=== PATIENT | female | born 1995 | race Caucasian/White ===

== ENCOUNTER 2021-04-16 13:07 | Outpatient (CLI) | payer OTHER, SELFPAY ==
[2021-04-21 17:07] LABS: HPV Reflexed? NOT INDICATED
== END 2021-04-16 23:59 | disposition home or self-care (01) ==
LOC: LABSPEC 13:17
PROVIDERS: Visit Provider Obstetrics & Gynecology
DX: Z12.4 Encounter for screening for malignant neoplasm of cervix (principal)
CPT/HCPCS: 88175; G0145

== ENCOUNTER 2021-08-25 14:45 | Emergency (ER) | payer OTHER, SELFPAY ==
[2021-08-25 14:46] VITALS: BP 142/100; PULSE 114; RESP 18; TEMP 37.1; O2SAT 100; BMI 31.9
--- NOTE | 2021-08-25 15:21 | US_ITS ---
STUDY: FIRST TRIMESTER OBSTETRICAL ULTRASOUND REASON FOR EXAM: Female, 26 years old. preg with vaginal bleeding TECHNIQUE: Transvaginal US was obtained to better visualized the ovaries. TECHNICAL QUALITY: Adequate. PRIOR ULTRASOUND: None. FINDINGS: There is visualization of a single gestational sac in a normal intrauterine position. The mean sac diameter (MSD) measures 26 mm, indicating an estimated gestational age (EGA) of 7 weeks, 4 days. The gestational sac shape is within normal limits. There is a visualized yolk sac. The yolk sac measures 3.6 mm. The placenta is non-visualized. Due to early gestation, the placenta is not seen. There is visualization of a live embryo. The crown-rump length (CRL) measures 13 mm, indicating an estimated gestational age (EGA) of 7 weeks, 4 days. There is demonstrated cardiac activity with a heart rate of 154 bpm. The estimated gestation age (EGA) by LMP is 7 weeks, 4 days. The estimated date of delivery (EUSEBIA) by LMP is 2.3.23. The estimated gestation age (EGA) by US is 7 weeks, 4 days. The estimated date of delivery (EUSEBIA) by US is 2.3.23. The uterus measures 9.6 cm. There is no demonstrated uterine fibroid. The cervix is closed. The right ovary measures in cm: 2.8. There is no right ovarian cyst. There is no visualized right adnexal mass or complex lesion. The left ovary measures 4 cm. Ovary cyst measures 2 cm. No follow up required. There is no visualized left adnexal mass or complex lesion. There is minimal fluid in the cul de sac. US/Transvaginal w/Preg US IMPRESSION: There is a single live intrauterine with a heart rate of 154 bpm. The estimated gestation age (EGA) by US is 7 weeks, 4 days. The estimated date of delivery (EUSEBIA) by US is 2.3.23. There is minimal fluid in the cul de sac. Electronically Signed: David Colunga MD at 18:06 EDT ,
--- NOTE | 2021-08-25 15:23 | EDS_ITS ---
HPI HPI - Female History of Present Illness Chief Complaint: Vag Bld, Preg Informant: patient Pain Pain: Negative for Pelvic Pain or Vulvar Pain Bleeding Issue: Positive for Vaginal bleeding; Negative for Passing clots or Passing tissue Onset: Today Context: Onset with activity Timing: Intermittent Current Severity: Spotting Maximum pads/hr: 0 Associated Symptoms Associated Symptoms: Negative for Dysuria, Frequency, Urgency or Hematuria Test: Positive Sexually: Positive for Active Control: No control P: 0 Ab: 0 Narrative Narrative: 26-year-old female G1, P0 Ab0 approximately 7 weeks with her last menstrual period beginning on July 03. Think she is around 7 weeks . Today while straining to have a bowel movement had a small amount of bright red vaginal bleeding. No heavy clots. No discharge. No dysuria. No fever. Currently she is having no pain. Prior similar symptoms: No Recent Illness/Hospitalization: No PFSH PFSH Medical History Non-smoker Medical History no medical history no medical history Home Medications prenat.vits,emy,zkp-lefk-nixox 1 tab PO DAILY 08/24/21 [History Last Taken Unknown] Allergy/AdvReac Type Severity Reaction Status Date / Time latex Allergy Mild itching Verified 08/25/21 14:47 Family History Father , liver failure ETOH abuse Social History adopted: No household members: spouse current occupational status: employed current occupation: [employer] pets and animals: Yes pets and animals: dog(s) Smoking Status: Never smoker alcohol intake: never substance use type: does not use do you feel safe at home: Yes additional social history: spouse: Patel FLETCHER ROS ED ROS Narrative Denies recent illness. Review of Systems ROS Unobtainable: Denies due to encephalopathy Constitutional Constitutional ED: Denies chills Eyes Eyes: Denies blurry vision ENT ENT ED: Denies ear pain Cardiovascular Cardiovascular: Denies chest pain Respiratory/Chest Respiratory/Chest: Denies cough Gastrointestinal Gastrointestinal: Denies abdominal pain Genitourinary Genitourinary ED: Denies dysuria Musculoskeletal Musculoskeletal: Denies arthralgias Integumentary Denies abscess Neurologic Neurologic: Denies headache(s) Psychiatric Psychiatric: Denies anxiety Endocrine Endocrinology: Denies heat intolerance Hematologic/Lymphatic Hematologic/Lymphatic: Denies easy bleeding Allergic/Immunologic Allergic/Immunologic ED: Denies mouth swelling EXAM Physical Exam Narrative Exam Narrative: 14-year-old female no acute distress vital signs stable afebrile. HEENT exam unremarkable. Lungs clear. Heart regular rhythm rate about 110 no murmur. Abdomen soft nontender normal bowel sounds no peritoneal signs. Nontender uterus. Moving all 4 extremities. Neurologically she is awake alert. Const Vital Signs: 08/25/21 14:46 08/25/21 17:53 Temperature 98.7 F Temperature Source Temporal Pulse Rate 114 H 103 H Respiratory Rate 18 15 Blood Pressure 142/100 H 129/82 H Blood Pressure Mean 114 97 Pulse Ox 100 99 Oxygen Delivery Method Room Air Room Air Positive well nourished and well developed; Negative for cachectic, contractures or unkempt General Appearance ED: well developed; Negative for unkempt, cachectic or contractures Nutritional Appearance: Negative for cachectic HEENT Reports moist mucous membranes Negative for trauma Eyes PERRL and EOMs intact bilaterally General Eye ED: Negative for pale conjunctiva or scleral icterus Neck no lymphadenopathy, supple and no JVD Chest Wall inspection of chest normal and palpation of chest normal Resp normal respiratory effort and clear to auscultation bilaterally Cardio regular rhythm, S1 normal heart sound, no murmurs and no JVD; Negative for regular rate Rate: tachycardic GI normal to inspection, nondistended, normoactive bowel sounds, soft to palpation, non-tender, non-distended and no masses Auscultation: normoactive bowel sounds Palpation: Negative for tender, guarding or rigid Back/Spine Negative for no CVA tenderness General Back: Negative for CVA tenderness Extremity normal to inspection and full ROM General Extremety ED: Negative for edema or tenderness General Extremity: Negative for edema Neuro oriented x3 and CN's II-XII intact bilaterally Sensorium / Orientation: alert, oriented to person, oriented to place and oriented to time; Negative for confused, lethargic or stuporous Motor Exam: strength 5/5 throughout; Negative for general weakness Psych mental status grossly normal Appearance: Negative for unkempt Attitude: No agitated Mood & Affect: Negative for depressed Skin no rashes or lesions noted and no wounds MDM MDM MDM Narrative Medical decision making narrative: 26-year-old female G1, P0 Ab0. Concern with vaginal bleeding today. Ultrasound and labs to be obtained. She is having no pain. Threatened miscarriage versus other. Repeat exam patient is doing well at 6:48 PM to be discharged home with follow- up with her JUDICIAL LAW CLERK. Lab Data Attestation: I reviewed the patient's lab results. Lab results narrative: Blood type is a positive. Quant was 84,139. Ultrasound shows a single live IUP at 7 weeks and 4 days. Estimated date of delivery is April 09, 2022. Heart rate 154. Labs: Laboratory Results - last 24 hr 08/25/21 08/25/21 15:43 15:43 HCG, Quant [id number] H Blood Type A POSITIVE Radiography Diagnostic Testing: Clinical Impression(s) from Imaging Studies Obstetrics Ultrasound 08/25/21 15:21 IMPRESSION: There is a single live intrauterine with a heart rate of 154 bpm. The estimated gestation age (EGA) by US is 7 weeks, 4 days. The estimated date of delivery (EUSEBIA) by US is 2.3.23. There is minimal fluid in the cul de sac. Electronically Signed: David Colunga MD at 18:06 EDT Reading Location ID and State: [facility] / [place] , Service support , Discharge Plan Triage Chief Complaint: Vag Bld, Preg ED Provider: Kyle Pendleton Dx/Rx/DC Orders Clinical Impression: , Vaginal bleeding, Threatened miscarriage Instructions: First Trimester Prescriptions: No Action prenat.vits,emy,uhl-kprh-utvpc Tablet 1 tab PO DAILY Primary Care Provider: Jose De Jesus Bouhcer Referrals: Linda Grant DO [STAFF PHYSICIAN] - Keep Lia appointment Jose De Jesus Boucher MD [Primary Care Provider] - Activity Restrictions/Additional Instructions: Everything checks out well today. Your ultrasound shows a fetus is 7 weeks and 4 days. Your estimated date of delivery is April 09, 2022. Follow-up with your JUDICIAL LAW CLERK. Return if heavy bleeding. No heavy lifting or intercourse at this time. Disposition Disposition: Home, Self Care
[2021-08-25 17:53] VITALS: BP 129/82; PULSE 103; RESP 15; O2SAT 99
[2021-08-25 18:57] VITALS: PULSE 68; O2SAT 98
== END 2021-08-25 18:57 | disposition home or self-care (01) ==
PROVIDERS: Emergency Provider Emergency Medicine; PCP Family Medicine; Visit Provider Emergency Medicine
DX: O20.0 Threatened abortion (principal); Z3A.01 Less than 8 weeks gestation of pregnancy
CPT/HCPCS: 76817; 84702; 86900; 86901; 99283; A4216

== ENCOUNTER → 2021-09-03 | Outpatient (CLI) | payer OTHER, SELFPAY ==
[2021-09-03 13:22] LABS: Amphetamine Urine VISTA NEGATIVE (<1000 ng/mL); Barbiturate Urine VISTA NEGATIVE (< 200 ng/mL); Benzodiazepine Urine VISTA NEGATIVE (< 200 ng/mL); Cocaine Urine VISTA NEGATIVE (< 300 ng/mL); Ecstacy Urine VISTA NEGATIVE (< 500 ng/mL); Methadone Urine VISTA NEGATIVE (< 300 ng/mL); PCP Urine VISTA NEGATIVE (< 25 ng/mL); THC Urine VISTA NEGATIVE (< 50 ng/mL); Vista UDS pH Range 7
[2021-09-05 00:06] LABS: Chlamydia By Nucleic Acid AMP Negative (Negative)
[2021-09-05 14:25] LABS: Gonococcus By Nucleic Acid AMP Negative (Negative)
== END | disposition home or self-care (01) ==
LOC: LABSPEC 12:16
PROVIDERS: PCP Family Medicine; Visit Provider Obstetrics & Gynecology
DX: Z34.90 Encounter for supervision of normal pregnancy, unspecified, unspecified trimester (principal)
CPT/HCPCS: 80307; 87086; 87088; 87491; 87591

== ENCOUNTER → 2021-09-15 | Outpatient (CLI) | payer OTHER, SELFPAY ==
[2021-09-15 12:37] LABS: Absolute Neutrophil Count 7.4 X10^3/uL (2.0-7.7); Basophil# 0.01 X10^3/uL; Basophil% 0.1 % (0-1); Eosinophil# 0.04 X10^3/uL; Eosinophils% 0.4 % (0-5); Hematocrit 34.5 % (37-47); Hemoglobin 11.7 g/dL (12.0-15.0); Lymphocyte % 17.2 % (19-41); Mean Corp Hgb Conc 33.9 g/dL (32-36); Mean Corpuscular Hgb 30.7 pg (27.0-32.0); Mean Corpuscular Volume 90.6 fL (81-99); Mean Platelet Vol. 10.3 fl (6.2-12.0); Monocyte# 0.67 X10^3/uL; Monocyte% 6.8 % (0-10); NRBC Flagged by Analyzer 0 % (0-5); Neutrophil # 7.43 X10^3/uL (2.7-7.7); Platelet Count 268 K/mm3 (150-450); RBC Distribution Width CV 12.8 % (11.6-14.6); RBC Distribution Width SD 41.4 fl (35.1-43.9); Red Blood Count 3.81 M/mm3 (4.2-5.4); White Blood Count 9.9 K/mm3 (4.4-11.0)
[2021-09-15 13:07] LABS: Glucose Challenge Gest 1H 50g 136 mg/dL (70-140)
[2021-09-15 15:13] LABS: HIV - WCH Non-Reactive (Nonreactive); Hepatitis B Surface Antigen Non-Reactive (Nonreactive); Hepatitis C Antibody Non-Reactive (Nonreactive); Rubella IgG Reactive (Nonreactive); Syphilis Antibodies Non-reactive
[2021-09-16 16:59] LABS: V-Zoster IgG (Immunity) 193 index (Immune >165)
== END | disposition home or self-care (01) ==
LOC: LAB 11:35
PROVIDERS: PCP Family Medicine; Referring Provider Obstetrics & Gynecology; Visit Provider Obstetrics & Gynecology
DX: Z34.90 Encounter for supervision of normal pregnancy, unspecified, unspecified trimester (principal)
CPT/HCPCS: 36415; 82950; 85025; 86703; 86762; 86780; 86787; 86803; 86850; 86900; 86901; 87340

== ENCOUNTER → 2021-09-30 | Outpatient (CLI) | payer OTHER, SELFPAY ==
[2021-09-30 09:33] LABS: Glucose GTT-Gestation. Fasting 93 mg/dL (<105)
[2021-09-30 11:36] LABS: Glucose GTT-Gestational 2 Hr 107 mg/dL (<165)
[2021-09-30 11:40] LABS: Glucose GTT-Gestational 1 Hr 115 mg/dL (<190)
[2021-09-30 12:59] LABS: Glucose GTT-Gestational 3 Hr 47 L (<145)
== END | disposition home or self-care (01) ==
LOC: LAB 08:50
PROVIDERS: PCP Family Medicine; Visit Provider Obstetrics & Gynecology
DX: Z13.1 Encounter for screening for diabetes mellitus (principal)
CPT/HCPCS: 36415; 82951; 82952

== ENCOUNTER → 2022-01-12 | Outpatient (CLI) | payer OTHER, SELFPAY ==
[2022-01-12 09:13] LABS: Absolute Lymphocyte Count 1.33 X10^3/uL (0.83-4.51); Absolute Neutrophil Count 10.3 X10^3/uL (2.0-7.7); Basophil# 0.02 X10^3/uL; Basophil% 0.2 % (0-1); Eosinophil# 0.07 X10^3/uL; Eosinophils% 0.6 % (0-5); Hematocrit 31.1 % (37-47); Hemoglobin 10.3 g/dL (12.0-15.0); Lymphocyte # 1.33 X10^3/ul (0.83-4.51); Lymphocyte % 10.7 % (19-41); Mean Corp Hgb Conc 33.1 g/dL (32-36); Mean Corpuscular Hgb 30.8 pg (27.0-32.0); Mean Corpuscular Volume 93.1 fL (81-99); Mean Platelet Vol. 9.7 fl (6.2-12.0); Monocyte# 0.66 X10^3/uL; Monocyte% 5.3 % (0-10); NRBC Flagged by Analyzer 0 % (0-5); Neutrophil # 10.29 X10^3/uL (2.7-7.7); Neutrophil % 82.6 % (47-70); Platelet Count 254 K/mm3 (150-450); RBC Distribution Width CV 13.1 % (11.6-14.6); RBC Distribution Width SD 44.7 fl (35.1-43.9); Red Blood Count 3.34 M/mm3 (4.2-5.4); White Blood Count 12.4 K/mm3 (4.4-11.0)
[2022-01-12 09:22] LABS: Glucose Challenge Gest 1H 50g 127 mg/dL (70-140)
== END | disposition home or self-care (01) ==
LOC: PAVLAB 08:47
PROVIDERS: PCP Family Medicine; Referring Provider Nurse Practitioner Women's Health; Visit Provider Nurse Practitioner Women's Health
DX: Z34.90 Encounter for supervision of normal pregnancy, unspecified, unspecified trimester (principal)
CPT/HCPCS: 36415; 82950; 85025

== ENCOUNTER → 2022-03-15 | Outpatient (CLI) | payer OTHER, SELFPAY ==
[2022-03-15 09:39] LABS: Absolute Lymphocyte Count 1.37 X10^3/uL (0.83-4.51); Absolute Neutrophil Count 9.2 X10^3/uL (2.0-7.7); Basophil# 0.02 X10^3/uL; Basophil% 0.2 % (0-1); Eosinophil# 0.07 X10^3/uL; Eosinophils% 0.6 % (0-5); Hematocrit 32.9 % (37-47); Hemoglobin 10.8 g/dL (12.0-15.0); Lymphocyte # 1.37 X10^3/ul (0.83-4.51); Lymphocyte % 11.7 % (19-41); Mean Corp Hgb Conc 32.8 g/dL (32-36); Mean Corpuscular Volume 94.5 fL (81-99); Mean Platelet Vol. 9.8 fl (6.2-12.0); Monocyte# 0.93 X10^3/uL; NRBC Flagged by Analyzer 0 % (0-5); Neutrophil # 9.16 X10^3/uL (2.7-7.7); Neutrophil % 78.5 % (47-70); Platelet Count 255 K/mm3 (150-450); RBC Distribution Width CV 13.7 % (11.6-14.6); RBC Distribution Width SD 46.9 fl (35.1-43.9); Red Blood Count 3.48 M/mm3 (4.2-5.4); White Blood Count 11.7 K/mm3 (4.4-11.0)
== END | disposition home or self-care (01) ==
PROVIDERS: PCP Family Medicine; Referring Provider Obstetrics & Gynecology; Visit Provider Obstetrics & Gynecology
DX: Z34.93 Encounter for supervision of normal pregnancy, unspecified, third trimester (principal)
CPT/HCPCS: 36415; 85025; 87081

== ENCOUNTER 2022-04-06 05:00 | Inpatient (IN) | payer OTHER, SELFPAY ==
[2022-04-06] VITALS (68 sets, daily range): BP systolic 109–139; BP diastolic 57–91; PULSE 73–128; RESP 16; TEMP 36.4–37.3; O2SAT 96–100; BMI 36.8
[2022-04-06 05:00] LABS: ROM Internal Control Test YES-OK TO RESULT pt. (Internal QC); ROM Patient Test POSITIVE (Negative)
[2022-04-06] MEDS: Lactated Ringers 1,000 ML 50 ML IV (05:25)
[2022-04-06 05:51] LABS: Absolute Lymphocyte Count 1.49 X10^3/uL (0.83-4.51); Absolute Neutrophil Count 10.6 X10^3/uL (2.0-7.7); Basophil# 0.02 X10^3/uL; Basophil% 0.2 % (0-1); Eosinophil# 0.06 X10^3/uL; Eosinophils% 0.5 % (0-5); Hematocrit 31.6 % (37-47); Hemoglobin 10.5 g/dL (12.0-15.0); Lymphocyte # 1.49 X10^3/ul (0.83-4.51); Lymphocyte % 11.3 % (19-41); Mean Corp Hgb Conc 33.2 g/dL (32-36); Mean Corpuscular Hgb 31.2 pg (27.0-32.0); Mean Corpuscular Volume 93.8 fL (81-99); Mean Platelet Vol. 10.3 fl (6.2-12.0); Monocyte# 0.81 X10^3/uL; Monocyte% 6.2 % (0-10); NRBC Flagged by Analyzer 0 % (0-5); Neutrophil # 10.63 X10^3/uL (2.7-7.7); Neutrophil % 80.9 % (47-70); Platelet Count 228 K/mm3 (150-450); RBC Distribution Width CV 13.4 % (11.6-14.6); RBC Distribution Width SD 46.1 fl (35.1-43.9); Red Blood Count 3.37 M/mm3 (4.2-5.4); White Blood Count 13.1 K/mm3 (4.4-11.0)
[2022-04-06] MEDS: 0.9% Saline Lock 10 ML Syringe IV ×2 (07:06→12:53)
--- NOTE | 2022-04-06 07:25 | HP.PCM.OB_ITS ---
HPI - General General Date of Admission: 04/06/22 HPI Narrative DEBRA SANDOVAL, is a 26 y/o @ 39 weeks 4 days gestation who presents to L&D with spontaneous rupture of membranes. She is currently comfortable and has not started contractions yet. It has been over 6 hrs since her rupture. Maternal Data Information EUSEBIA Calculator Estimated Delivery Date Method Current WG Current Estimate 04/09/22 LMP (Certain) 39w 4d PFSH PFSH Medical History Dysmenorrhea Non-smoker Home Medications prenat.vits,emy,okx-gqhl-bivcn 1 tab PO DAILY 08/24/21 [History Last Taken Unknown] ferrous sulfate 325 mg (65 mg iron) tablet 325 mg PO DAILY 02/03/22 [History Last Taken Unknown] Allergy/AdvReac Type Severity Reaction Status Date / Time latex Allergy Mild itching Verified 04/05/22 09:06 Family History Father , liver failure ETOH abuse Other Breast cancer Diabetes Social History adopted: No household members: spouse current occupational status: employed current occupation: [employer] pets and animals: Yes pets and animals: dog(s) Smoking Status: Never smoker alcohol intake: never substance use type: does not use do you feel safe at home: Yes additional social history: spouse: Patel History 2 1 Elective abortions Hx Para 0 Spontaneous abortions Hx # Term Pregnancies Ectopic pregnancies Hx # Pregnancies Multiple births # of living children Visit Details Expected Delivery Route/Plan IOL by 41 Labor Preferences- CB/BF classes: encouraged labor support person: Jack labor intervention preferences: [] pain management options preferred: epidural cut cord/dad catch: yes, possibly wants to help catch. : yes PP control planned: discussed discussed possible routes of delivery and associated risks: [] special requests: [] Plans Covid status: discussed Flu vaccine: discussed Tdap vaccine: discussed Rhogam: na LARC form signed: yes movement and labor precautions reviewed. Problem list reviewed and updated with the most current plan of care details and appropriate orders placed. Relevant counseling for the gestational age provided. Continue routine care and follow up unless otherwise noted in visit notes/problem list details OB Flowsheet Initial Weight: Not Recorded Date -?-?-?-?-?-?-?-?-?-?-?-?- EGA Weight BP Urine Prot -?-?-?-?-?--?-?-?-?-?-?-?- Glucose FHR FuHt Pres Dilation -?-?-?-?-?-?-?-?-?-?-?--?- Effaced St Visit Note 09/03/21 -?-?-?-?-?-?-?-?-?-?-?-?- 8w 6d 194 lb 102/60 -?-?-?-?-?-?-?-?-?-?-?-?- 160 -?-?-?-?-?-?-?-?-?-?-?-?- SM- CRL cons wit h LMP 09/30/21 -?-?-?-?-?-?-?-?-?-?-?-?- 12w 5d 195 lb -?-?-?-?-?-?-?-?-?-?-?-?- 157 -?-?-?-?-?-?-?-?-?-?-?-?- JV- pt has decid ed against NIPT. crl measuring per establised GA. no complaints. return 4 weeks 10/28/21 -?-?-?-?-?-?-?-?-?-?-?-?- 16w 5d 198 lb 8 oz 124/60 Trac e -?-?-?-?-?-?-?-?-?-?-?-?- Negative 158 -?-?-?-?-?-?-?-?-?-?-?-?- MH-No VB, LOF. N o cramping. Anatomy US 11/16. 11/24/21 -?-?-?-?-?-?-?-?-?-?-?-?- 20w 4d 207 lb 110/71 Negative -?-?-?-?-?-?-?-?-?-?-?-?- Negative 150 20 -?-?-?-?-?-?-?-?-?-?-?-?- JV- no lof, vagi nal bleeding, or dec fm. normal anatomy scan. 12/29/21 -?-?-?-?-?-?-?-?-?-?-?-?- 25w 4d 215 lb 2 oz 98/68 Nega tive -?-?-?-?-?-?-?-?-?-?-?-?- Negative 158 -?-?-?-?-?-?-?-?-?-?-?-?- MH-No VB, LOF. G ood FM. States will do 28 wk GCT but will not do 3 hr GTT as difficult blood draws. Discussed home glucose monitoring. 01/19/22 -?-?-?-?-?-?-?-?-?-?-?-?- 28w 4d 220 lb 4 oz 98/64 Nega tive -?-?-?-?-?-?-?-?-?-?-?-?- Negative 144 28 -?-?-?-?-?-?-?-?-?-?-?-?- MH-No VB, LOF. G ood FM. Larc. 28 wk labs 02/03/22 -?-?-?-?-?-?-?-?-?-?-?-?- 30w 5d 224 lb 8 oz 106/73 Nega tive -?-?-?-?-?-?-?-?-?-?-?-?- Negative 137 30 -?-?-?-?-?-?-?-?-?-?-?-?- LC-no vb,ctx,lof . good FM. feel last weekend, had good fm following. instructed to contact office if this occurs again for monitoring. tdap discussed- is considering. LC-no vb,ctx,lof. good FM. f eel last weekend, had good fm following. instructed to contact office if this occurs again for monitoring. tdap discussed- is considering. passed 1 hr GCT. 02/17/22 -?-?-?-?-?-?-?-?-?-?-?-?- 32w 5d 227 lb 4 oz 121/77 Nega tive -?-?-?-?-?-?-?-?-?-?-?-?- Negative 155 32 -?-?-?-?-?-?-?-?-?-?-?-?- JV- no lof, vagi nal bleeding, or dec fm. declines tdap. 03/03/22 -?-?-?-?-?-?-?-?-?-?-?--?- 34w 5d 230 lb 4 oz 106/75 Nega tive -?-?-?-?-?-?-?-?-?-?-?-?- Negative 136 33 -?-?-?-?-?-?-?-?-?-?-?-?- LC- no lof/vb/ct x. good fm. no concerns 03/15/22 -?-?-?-?-?-?-?-?-?-?-?-?- 36w 3d 230 lb 104/70 Negative -?-?-?-?-?-?-?-?-?-?-?-?- Negative 140 37 Cephalic 0 .5 -?-?-?-?-?-?-?-?-?-?-?-?- SM- no vb lof go od fm n oregular ctx gbs done 03/24/22 -?-?-?-?-?-?-?-?-?-?-?-?- 37w 5d 234 lb 135/82 Negative -?-?-?-?-?-?-?-?-?-?-?-?- Negative 138 36 Cephalic 1 -?-?-?-?-?-?-?-?-?-?-?-?- 70 -2 JV- no lof , vaginal bleeding, or dec fm . no complaints. gbs neg. 03/29/22 -?-?-?-?-?-?-?-?-?-?-?-?- 38w 3d 234 lb 120/79 -?-?-?-?-?-?-?-?-?-?-?-?- 145 38 Cephalic 1 -?-?-?-?-?-?-?-?-?-?-?-?- 70 -2 SM- n ovb lof good fm nor egualr ctx 04/05/22 -?-?-?-?-?-?-?-?-?-?-?-?- 39w 3d 235 lb 4 oz 110/76 Nega tive -?-?-?-?-?-?-?-?-?-?-?-?- Negative 140 39 Cephalic 1 .5 -?-?-?-?-?-?-?-?-?-?-?-?- 70 -2 Lc-doing w ell. no regular ctx. no lof/vb. good fm. discussed r/b of IOL at 41 weeks. ROS Constitutional Constitutional: Denies change in weight, fatigue, fever(s), headache(s), poor appetite or weakness Eyes Eyes: Denies blurry vision, change in vision, seeing flashes or spots in vision ENT HEENT: Denies dizziness, headache(s), loss taste/smell or sore throat Cardiovascular Cardiovascular: Denies chest pain, dizziness, dyspnea, irregular heart rhythm, leg edema, palpitations, rapid heart rate or vomiting Respiratory/Chest Respiratory/Chest: Denies chest tightness, cough, dyspnea or breast pain Gastrointestinal Gastrointestinal: Denies abdominal pain, anorexia, constipation, cramping, diarrhea, hemorrhoids, vomiting or weight changes Genitourinary Genitourinary: Denies dysuria, flank pain, genital lesions, genital pain, urinary frequency or urinary urgency Musculoskeletal Musculoskeletal: Denies back pain, difficulty walking, joint pain, limited range of motion, muscle cramps or numbness Integumentary Integumentary: Denies lesions or unusual bruising Neurologic Neurologic: Denies abnormal movements, abnormal speech, dizziness, numbness, seizure-like activity or syncope Psychiatric Psychiatric: Denies anxiety, behavioral changes, change in appetite, change in libido, cognitive impairment, confusion, depression, difficulty concentrating, hallucinations or suicidal thoughts Endocrine Endocrinology: Denies excessive sweating, polydipsia or polyuria Hematologic/Lymphatic Hematologic/Lymphatic: Denies easy bleeding, easy bruising or lymphadenopathy Allergic/Immunologic Allergic/Immunologic: Denies itchy eyes, lip swelling, seasonal rhinorrhea, rhinitis, throat swelling, tongue swelling, eczemia, wheezing or asthma Vital Signs Vital Signs Vital Signs: 04/06/22 04:32 04/06/22 04:33 04/06/22 04:33 Temperature Temperature Source Pulse Rate 100 Blood Pressure 139/91 H BP Systolic 139 BP Diastolic 91 Pulse Ox 96 04/06/22 04:33 04/06/22 04:33 04/06/22 04:34 Temperature 98.1 F Temperature Source Pulse Rate 107 H Blood Pressure 136/83 H BP Systolic 136 BP Diastolic 83 Pulse Ox 04/06/22 05:42 04/06/22 05:42 04/06/22 05:41 Temperature Temperature Source Pulse Rate 90 Blood Pressure 118/72 BP Systolic 118 BP Diastolic 72 Pulse Ox 98 04/06/22 05:42 04/06/22 05:42 04/06/22 05:42 Temperature 97.7 F L Temperature Source Temporal Pulse Rate Blood Pressure BP Systolic BP Diastolic Pulse Ox 98 04/06/22 06:27 04/06/22 06:27 04/06/22 07:20 Temperature 97.5 F L Temperature Source Temporal Pulse Rate Blood Pressure 125/71 H BP Systolic 125 BP Diastolic 71 Pulse Ox 04/06/22 07:20 04/06/22 07:21 04/06/22 07:21 Temperature Temperature Source Pulse Rate 81 84 Blood Pressure BP Systolic BP Diastolic Pulse Ox 99 Weight Weight: 235 lb 0.204 oz Body Mass Index (BMI) 36.8 Physical Exam Const alert, oriented x3, no apparent distress and healthy appearing General Appearance: cooperative; Negative for anxious HEENT normocephalic Face and Sinus: normal facial exam Eyes EOMs intact bilaterally and no scleral icterus General Eye: normal appearance of both eyes Neck full ROM and supple Lymph Lymphatic: no lymphadenopathy noted Chest Chest: abnormal inspection of the chest Resp normal respiratory effort Effort and Inspection: able to speak in complete sentences Cardio regular rate GI soft to palpation and non-tender Inspection: gravid Palpation: soft; Negative for tender external exam normal Amniotic Fluid: ROM+plus Back/Spine no CVA tenderness Extremity normal to inspection, full ROM and no clubbing, cyanosis or edema General Extremity: Negative for calf tenderness or edema Skin Lesions: no lesions Rashes: no rashes Psych mental status grossly normal Labs Labs Labs: Blood Type A POSITIVE Antibody Screen NEGATIVE Hct 31.6 % (37-47) L Hgb 10.5 g/dL (12.0-15.0) L Pap Smear Negative Obstetrics US Syphilis Total Ab Non-reactive VZV IgG Antibody 193 index (Immune >165) Rubella IgG Antibody Reactive (Nonreactive) Hep Bs Antigen Non-Reactive (Nonreactive) Chlamydia DNA (DARIUS) Negative (Negative) Neisseria gonorrhoeae DNA (DARIUS) Negative (Negative) HIV 1&2 Antibody Non-Reactive (Nonreactive) Glucose 1 Hr 50 gm 127 mg/dL (70-140) Assessment & Plan (1) Supervision of normal first : COMMENT: PRR EUSEBIA: 04/09/22 girl Radha Sp:Patel (2) : QUALIFIERS: Weeks of gestation: 39 weeks Qualified Code(s): Z3A.39 - 39 weeks gestation of COMMENT: GBS Negative, Declined carrier and genetic screen. nl anatomy (3) Obesity affecting : COMMENT: 1 TM GCT. encouraged healthy weight gain. (4) Abnormal glucose in , antepartum: COMMENT: 3 HR GTT nl; agrees to 28 wk GCT but states will not due 3 hr again. normal 28weeks (5) Anemia affecting : COMMENT: add OTC Fe daily PLAN: Plan Patient presents IOL, plan management for with pitocin Pain management: plans epidural. GBS negative. Management of any complications: none I have reviewed the [facility] and made any clinically relevant updates.
[2022-04-06] MEDS: Oxytocin 15 Units/NS 250ml 15 UNITS/250 ML IV.SOLN 2 UNITS IV (07:48)
[2022-04-06] MEDS: LACTATED RINGERS 500 ML 999 ML IV ×3 (08:13→21:21)
[2022-04-06] MEDS: fentaNYL-bupivacaine (epidural) 100 ML BAG EPIDURAL ×3 (12:40→21:21)
--- NOTE | 2022-04-06 12:47 | PCM.PN.BLA ---
Progress Note pt is asking for epidural. nurse reports that she is 3/80/-1. current tracing: FHT: Moderate variability reactive no decelerations category I tracing. There were a few late decelerations present [place]: q1-[address] pit[address] at 2 mu/min reviewed tracing abnormalities since last note: occasional late decels. A/P: early labor on pitocin, srom epidural now and will recheck after epidural is placed.
[2022-04-06] MEDS: Lactated Ringers 1,000 ML 200 ML IV ×2 (13:11→19:11)
[2022-04-06] MEDS: Acetaminophen 500 MG Tablet PO ×2 (16:12→21:51)
[2022-04-06] MEDS: Ondansetron 4 MG/2 ML Vial IV (17:01)
--- NOTE | 2022-04-06 17:11 | PCM.PN.BLA ---
Progress Note pt is comfortable with epidural sitting up in high captain position current tracing: FHT: Moderate variability reactive no decelerations category I tracing [place]: tripling Contractions q1 min x 3 then 3 min break cs: 5-6/80/-1 suspect OP position reviewed tracing abnormalities since last note: no changes A/P: srom on pit and tripling suspect OP. continue position changes, continue pitocin
--- NOTE | 2022-04-06 21:46 | PCM.PN.BLA ---
Progress Note pt has been pushing now for about an hour and dent bag is filling with blood tinged urine. The tracing is showing tachycardia followed by late decels. current tracing: FHT: 180 Moderate variability , late decels after contractions down to 120's with return to 180's. after 500 fluid bolus heart rate baseline dropped to 160's momentarily then back to 180's [place]: q1 min Contractions cx completely dilated. station is +1. head position is straight Occiput posterior. Attempt made to turn head without success, suspec LGA. A/P: 1.OP position causing CPD 2. tachycardia and decels, improvement in decels when pushing stopped. possible early chorio vs distress. after discussion with patient, the decision is made to proceed with a primary section. Anesthesia and PREVENTIVE MAINTENANCE ENGINEER paged for JOANNE section. The risks, benefits, and alternatives discussed. I have explained to her that vacuum and forceps are not an option at the station and current state of the heart rate tracing.
[2022-04-06] MEDS: Sodium Citrate/Citric Acid 30 ML UDC PO (21:50)
--- NOTE | 2022-04-06 21:52 | DCINST_ITS ---
Discharge Instructions Diet Discharge Diet: No restrictions Activity Discharge Activity: May Not Drive (for 2 weeks or while taking narcotic pain medications.), May Shower and May Take a Tub Bath (in 7 days.) May resume sexual activity in: 4-6 weeks Weight Bearing Status: Full weight bearing Lifting Restrictions: 20 pounds Dressing / Incision Call your doctor if your incision/area has: Continuous Slow Oozing, Sudden Increased Bleeding, Increased Pain/ Swelling, Increased Redness and Foul Smelling Discharge Call your doctor if you observe: Fever of 101 or Higher and Using more than 1 pad per hour Suture Line Care: Avoid Pulling/Pushing and Avoid Pinching/Bending Cleanse incision/area with: Soap & Water and Keep Dressing Clean & Dry Follow Up Care Please Follow Up With: Linda Grant DO When: Call [phone] to make an appointment for an incision check in 1-2 weeks. Test Results: Test results from this visit will be discussed in further detail at your follow- up appointment, if applicable. Discharge Plan Admission Admit Date/Time: 04/06/22 05:00 Primary Reason for Your Visit: section Attending Provider: Betsy Canchola Primary Care Provider: Jose De Jesus Boucher Consulting Providers: Linda Grant Discharge Orders/Prescriptions Prescriptions: New oxycodone-acetaminophen [Percocet] 5-325 mg tablet 1 tab PO Q4H PRN (Reason: pain) 7 Days Qty: 30 0RF Rx Instructions: 1-2 tabs q 4 hrs as needed for pain naproxen 500 mg tablet 500 mg PO BID PRN (Reason: pain) Qty: 30 0RF No Action prenat.vits,emy,qwa-iwuw-qdfyo Tablet 1 tab PO DAILY ferrous sulfate 325 mg (65 mg iron) tablet 325 mg PO DAILY Referrals / Follow Up: Jose De Jesus Boucher MD [Primary Care Provider] - Disposition Disposition (needs filled in before D/C Order can be placed): Home, Self Care
--- NOTE | 2022-04-06 21:55 | EX.PCM.OBRPT ---
Assessment & Plan (1) Anemia affecting : COMMENT: add OTC Fe daily (2) Occiput posterior presentation of fetus: (3) Abnormal glucose in , antepartum: COMMENT: 3 HR GTT nl; agrees to 28 wk GCT but states will not due 3 hr again. normal 28weeks (4) Obesity affecting : COMMENT: 1 TM GCT. encouraged healthy weight gain. (5) : QUALIFIERS: Weeks of gestation: 39 weeks Qualified Code(s): Z3A.39 - 39 weeks gestation of COMMENT: GBS Negative, Declined carrier and genetic screen. nl anatomy (6) Supervision of normal first : COMMENT: PRR EUSEBIA: 04/09/22 merlin Garcia Sp:Patel Maternal Data Information EUSEBIA Calculator Estimated Delivery Date Method Current WG Current Estimate 04/09/22 LMP (Certain) 39w 4d Final EUSEBIA: 04/09/22 Final EUSEBIA Source: LMP Gestational age: 39 weeks 4 days Details Operative Information Date of Procedure: 04/06/22 Pre-Operative Diagnosis: @ 39 wees 4 days, SROM, occiput posterior position resulting in Cephalopelvic disproportion and failure to descend. Post-Operative Diagnosis: @ 39 wees 4 days, SROM, occiput posterior position resulting in Cephalopelvic disproportion and failure to descend. 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 The heart rate was tachycardic with late decelerations. Upon exam, it was evident that the fetus was lodged in an OP position that was not possible to rotate. The decision was made to proceed with a primary section. The patient was brought to the operating room where epidural anesthesia was found to be adequate Mcclendon catheter was in place and a vaginal prep was performed.. The patient was placed in the dorsal supine position with leftward tilt. Patient was prepped and draped in the normal sterile fashion. Pfannenstiel skin incision was made with the scalpel and carried through to the underlying layer of fascia with the scalpel. Fascia was nicked in the midline and the incision extended laterally. The rectus bellies were dissected off superiorly and inferiorly with out complication both sharply and bluntly. The peritoneum was entered digitally. The incision was stretched and a low transverse uterine incision was made with the scalpel. The 's left elbow presented through the incision and was replaced and at that time it was evident by the face presentation through the incision, that the presentation was in fact OP. Thick meconium stained fluid was also noted. The head was delivered atraumatically but with some upward pressure to release the suction. This was followed by the anterior and posterior shoulders without complication the rest of the delivered. The cord was clamped and cut and the infant was handed off to awaiting nurse. The placenta was delivered manually immediately following and was noted to be intact and have a three-vessel cord. The uterus was exteriorized cleared of all clots and debris, and the incision was noted to be extended to the left lower uterine segment. This was closed in a double layer closure using #1 Vicryl and #1 Monocryl. The ovaries and fallopian tubes were noted to be within normal limits. The uterus was returned to the maternal abdomen and gutters were cleared of all clots and debris. The peritoneum was closed with 3-0 Monocryl in a running fashion. Gloves were changed prior to fascial closure. Fascia was closed with 0 PDS in a running fashion. Subcutaneous tissue was copiously irrigated and the skin was closed with 3-0 Monocryl in a subcuticular fashion. Mepilex dressing was applied without complication. Patient was taken to recovery in stable condition. It was discussed with the patient that based on the clinical information obtained during this encounter, combined with her history, at this time I would recommend either vaginal or sections for future deliveries if further pregnancies are desired. Presentation: Positive for ROP Amniotic Membrane Rupture Type: Spontaneous Amniotic Fluid Description: Moderate meconium Placental Delivery Description: Manual Removal Placenta Disposition: Routine to Lab Cord Vessel Description: 3 Vessels Cord Entanglement: None A Gender: Female (1 minute): 8 (5 minute): 9 Delayed Cord Clamping: Yes Complications Risks of Surgery Discussed w/Patient: Bleeding, Anesthesia Risks, Infection, Need for Future C-Sections and Injury to surrounding structure(s) including bowel and bladder Procedures Urinary/Genital 52xxx-59xxx: [id number] Delivery global pkg
--- NOTE | 2022-04-06 22:09 | PLAC_PTH ---
PATIENT: DEBRA SANDOVAL LOC: [facility] U#:[id number] AGE/SX: 26/F ROOM: WP009 RE04/06/[address]: Betsy Canchola CNM : 1995 BED: 1 DIS: 04/08/2022 SPEC #: [id number] RECD: 04/07/22 05:25 STATUS: CONCHA BHASKAR #: [id number] DEYVI: 04/06/22 22:[address]: Linda Grant DEPT: SURGICAL PATHOLOGY RECD BY: Ray Simental ENTERED: 04/07/22 10:29 SP TYPE: PLACENTA OTHR DR: MD Betsy Snowden CNM Tissues: Placenta, NOS Procedures: Surgery Specimen Level V HEADER OPERATION: Primary section PRE-OP DIAGNOSIS: Prolonged rupture of membranes TISSUE SUBMITTED: Placenta MICROSCOPIC DIAGNOSIS [place] placenta (350 gm): Umbilical cord ? trivascular with focal acute funisitis. Placental membranes ? acute chorioamnionitis. Placental disc ? Hi-Gold change, intravillous congestion and mild acute decidual inflammation. AM:bruna 04/09/2022 MICROSCOPIC DESCRIPTION Slides are reviewed. GROSS DESCRIPTION SPECIMEN: PLACENTA / CLINICAL INFORMATION: A. Weight: 4.005 kg B. Gestational Age: 39 weeks C. Sex: Female PLACENTAL WEIGHT (POST FIXATION): 350 gm PLACENTAL DIMENSIONS: 18 x 15 x 3 cm PLACENTAL SHAPE: Usual ovoid PLACENTAL WEIGHT FOR GESTATIONAL AGE: Within 10-99th percentile MEMBRANES - Present A. Insertion: Marginal B. Site of rupture from edge: At edge of placental disc C. Color of membrane: Paez-olsen D. Abnormalities: None UMBILICAL CORD - Present A. Color: Paez-olsen B. Insertion: Eccentric C. Length: 37 cm D. Diameter: 1.5 cm E. Number of vessels: Three F. Abnormalities: None PLACENTAL DISC - Present A. Color of surface: Paez-olsen B. surface abnormalities: None C. Maternal cotyledons: Intact with minimal tears D. Attached retro placental clot: No clot E. Cut surface: Dark red and spongy F. Lesions: None G. Separate clot: 6.5 x 2 x 1 cm SECTIONS SUBMITTED: 1. Umbilical cord ( end notched) 2. Umbilical cord, placental end 3. Membrane roll 4. Placental disc, and maternal surfaces 5. Placental disc, and maternal surfaces 6. Placental disc, and maternal surfaces AM:bruna 04/08/2022 TC:2 CPT: 30337
[2022-04-06] MEDS: Cefazolin 2 GM in 0.9% Normal Saline 100 ML IV (22:15)
[2022-04-06] MEDS: Oxytocin 15 Units/NS 250ml 15 UNITS/250 ML IV.SOLN 83 UNITS IV (23:27)
[2022-04-07] VITALS (22 sets, daily range): BP systolic 95–129; BP diastolic 38–70; PULSE 82–105; RESP 11–88; TEMP 36.4–36.9; O2SAT 93–99
[2022-04-07] MEDS: Ketorolac 30 MG/ML Syringe IV ×3 (00:13→12:14)
[2022-04-07] MEDS: Lactated Ringers 1,000 ML 100 ML IV (02:38)
[2022-04-07] MEDS: Acetaminophen 500 MG Tablet 1000 MG PO ×3 (03:44→17:24)
[2022-04-07 05:27] LABS: Pathology Specimen OB SEE PATHOLOGY REPORT
[2022-04-07 06:19] LABS: Hematocrit 26.4 % (37-47); Hemoglobin 8.8 g/dL (12.0-15.0); Mean Corp Hgb Conc 33.3 g/dL (32-36); Mean Corpuscular Hgb 31.4 pg (27.0-32.0); Mean Corpuscular Volume 94.3 fL (81-99); Platelet Count 191 K/mm3 (150-450); RBC Distribution Width CV 13.5 % (11.6-14.6); RBC Distribution Width SD 47.4 fl (35.1-43.9); White Blood Count 17.6 K/mm3 (4.4-11.0)
--- NOTE | 2022-04-07 07:12 | NURSING ---
Dr Caro informed that pt's bp's are running 90's/50's and hgb dropped from 10.5 to 8.8. Pt asymptomatic. No new orders received.
--- NOTE | 2022-04-07 08:19 | PCM.PN.OB ---
Subjective Subjective Patient doing well without complaints. Tolerating PO. Ambulating and voiding without difficulty. Feeding well. Denies chest pain, shortness of breath, calf pain/swelling, fevers, chills, lightheadedness. Objective Data Objective Data Vital Signs: Vital Signs Temp Pulse Resp BP Pulse Ox O2 Del Method 97.6 F L 83 16 95/38 L 97 Room Air 04/07/22 07:43 04/07/22 07:43 04/07/22 07:43 04/07/22 07:43 04/07/22 07:43 04/07/22 07:43 Oxygen Delivery Method Room Air Weight: 235 lb 0.204 oz Body Mass Index (BMI) 36.8 Intake & Output: Intake and Output for Last 24 Hours 04/05/22 04/06/22 04/07/22 23:59 23:59 23:59 Intake Total 5030.74 / 5030.74 505 / 505 Output Total 1175 / 1175 925 / 925 Balance 3855.74 / 3855.74 -420 / -420 Lab / Micro Data Result Diagrams: 04/07/22 06:00 Labs: Laboratory Results - last 24 hr 04/07/22 06:00: WBC 17.6 H, RBC 2.80 L, Hgb 8.8 L, Hct 26.4 L, MCV 94.3, MCH 31.4, MCHC 33.3, RDW Std Deviation 47.4 H, RDW Coeff of Kamran 13.5, Plt Count 191, MPV 10.0 Physical Exam Const alert, oriented x3 and no apparent distress Lymph Lymphatic: no lymphadenopathy noted Chest inspection of chest normal Resp normal respiratory effort, normal air movement and no retractions GI GI Narrative: fundus firm at u, mild lochia. no clots Skin no rashes or lesions noted Skin Narrative: dressing c/d/i Neuro oriented x3 Assessment & Plan (1) Status post section: COMMENT: persistent OP position and tachycardia PLAN: Plan s/p LTCS PPD # 1 1. routine post care 2. breast feeding- support given 3. rh positive 4. rubella immune
[2022-04-07] MEDS: Senna/Docusate Sodium 1 Tablet PO (09:54)
[2022-04-07] MEDS: Enoxaparin 40 MG/0.4 ML Syringe SC (09:54)
[2022-04-07] MEDS: Ibuprofen 600 MG Tablet PO (18:10)
[2022-04-08] MEDS: Acetaminophen 500 MG Tablet 1000 MG PO ×3 (00:06→11:47)
[2022-04-08] MEDS: Ibuprofen 600 MG Tablet PO ×3 (00:07→11:47)
[2022-04-08 02:25] VITALS: BP 97/47; PULSE 80; RESP 16; TEMP 36.9; O2SAT 94
--- NOTE | 2022-04-08 08:06 | PCM.PN.OB ---
Subjective Subjective Patient doing well without complaints. Tolerating PO. Ambulating and voiding without difficulty. feeding well. Denies chest pain, shortness of breath, calf pain/swelling, fevers, chills, lightheadedness. Objective Data Objective Data Vital Signs: Vital Signs Temp Pulse Resp BP Pulse Ox O2 Del Method 98.4 F 80 16 97/47 L 94 Room Air 04/08/22 02:25 04/08/22 02:25 04/08/22 02:25 04/08/22 02:25 04/08/22 02:25 04/08/22 02:25 Oxygen Delivery Method Room Air Weight: 235 lb 0.204 oz Body Mass Index (BMI) 36.8 Intake & Output: Intake and Output for Last 24 Hours 04/06/22 04/07/22 04/08/22 23:59 23:59 23:59 Intake Total 5030.74 / 5030.74 1436.67 / 1436.67 Output Total 1175 / 1175 1755 / 1755 Balance 3855.74 / 3855.74 -318.33 / -318.33 Lab / Micro Data Result Diagrams: 04/07/22 06:00 ROS Constitutional Constitutional: Reports systems reviewed and no addt'l complaints, except as documented Cardiovascular Cardiovascular: Reports systems reviewed and no addt'l complaints, except as documented Respiratory/Chest Respiratory/Chest: Reports systems reviewed and no addt'l complaints, except as documented Gastrointestinal Gastrointestinal: Reports systems reviewed and no addt'l complaints, except as documented Physical Exam Const alert, oriented x3 and no apparent distress HEENT Head and Scalp: atraumatic Resp normal respiratory effort GI soft to palpation and non-tender Inspection: incision intact, healing well and drainage (none) Bimanual Exam - Vag & Uterus: uterus non-tender Uterus Palpation: uterus fundus firm (below Umbilicus) Assessment & Plan (1) Status post section: COMMENT: persistent OP position and tachycardia PLAN: Plan s/p LTCS PPD # 2 1. routine post care 2. breast feeding- support given 3. rh positive 4. rubella immune
[2022-04-08 08:12] VITALS: BP 102/47; PULSE 74; RESP 16; TEMP 36.5; O2SAT 98
[2022-04-08] MEDS: Senna/Docusate Sodium 1 Tablet PO (10:09)
[2022-04-08] MEDS: Enoxaparin 40 MG/0.4 ML Syringe SC (10:10)
== END 2022-04-08 12:10 | disposition home or self-care (01) | DRG 786 ==
PROVIDERS: Obstetrics & Gynecology; Admitting Provider Registered Nurse; PCP Family Medicine; Visit Provider Registered Nurse
DX: O76 Abnormality in fetal heart rate and rhythm complicating labor and delivery (principal); O41.1230 Chorioamnionitis, third trimester, not applicable or unspecified; O99.214 Obesity complicating childbirth; O99.814 Abnormal glucose complicating childbirth; O33.9 Maternal care for disproportion, unspecified; O36.63X0 Maternal care for excessive fetal growth, third trimester, not applicable or unspecified; O42.92 Full-term premature rupture of membranes, unspecified as to length of time between rupture and onset of labor; O62.1 Secondary uterine inertia; Z37.0 Single live birth; Z3A.39 39 weeks gestation of pregnancy; O99.02 Anemia complicating childbirth; O77.0 Labor and delivery complicated by meconium in amniotic fluid
CPT/HCPCS: 59025; 59050; 84112; 85025; 85027; 86850; 86900; 86901; 88307; 99221; 99252; J7120; A4216; G0378; G0463; J2405

== ENCOUNTER → 2022-06-11 | Outpatient (CLI) | payer OTHER, SELFPAY ==
--- NOTE | 2022-06-11 12:55 | US_ITS ---
INDICATION: thyromegaly EXAMINATION: Ultrasound US Thyroid (eg thyroid, parathyroid, parotid) TECHNIQUE: Becerra scale and color doppler imaging was performed of the thyroid gland. COMPARISON: None. FINDINGS: RIGHT THYROID LOBE: 5.0 x 1.8 x 1.7 cm. Homogeneous echotexture with normal vascularity. [No thyroid nodules are present. LEFT THYROID LOBE: 4.6 x 1.8 x 1.0 cm. Homogeneous echotexture with normal vascularity. [No thyroid nodules are present. ISTHMUS: 0.3 cm. No thyroid nodules are present. US/Thyroid IMPRESSION: Nonspecific homogeneous thyromegaly, without hyperemia or evidence of internal nodularity. Correlate with thyroid labs. Electronically Signed: Edil Eason MD at 5:23 EDT ,
[2022-06-11 14:52] LABS: T4 Free Direct 0.94 ng/dL (0.76-1.46); Thyroid Stim Hormone (TSH) 1.65 uIU/mL (0.358-3.74)
[2022-06-15 14:41] LABS: Anti-Thyroglobulin AB < 1.0 IU/mL (0.0-0.9); Thyroglobulin, Serum Qt. 12.4 ng/mL (1.5-38.5)
== END | disposition home or self-care (01) ==
PROVIDERS: PCP Family Medicine; Referring Provider Obstetrics & Gynecology; Visit Provider Obstetrics & Gynecology
DX: E01.0 Iodine-deficiency related diffuse (endemic) goiter (principal)
CPT/HCPCS: 36415; 76536; 84432; 84439; 84443; 86800

== ENCOUNTER → 2024-04-03 | Outpatient (CLI) | payer OTHER, SELFPAY ==
[2024-04-03 15:19] LABS: Absolute Lymphocyte Count 1.93 X10^3/uL (0.83-4.51); Absolute Neutrophil Count 5.4 X10^3/uL (2.0-7.7); Basophil# 0.02 X10^3/uL; Basophil% 0.2 % (0-1); Eosinophil# 0.09 X10^3/uL; Eosinophils% 1.1 % (0-5); Hematocrit 37.8 % (37-47); Hemoglobin 12.6 g/dL (12.0-15.0); Lymphocyte # 1.93 X10^3/ul (0.83-4.51); Lymphocyte % 23.9 % (19-41); Mean Corp Hgb Conc 33.3 g/dL (32-36); Mean Corpuscular Hgb 29.8 pg (27.0-32.0); Mean Corpuscular Volume 89.4 fL (81-99); Mean Platelet Vol. 10.1 fl (6.2-12.0); Monocyte# 0.63 X10^3/uL; Monocyte% 7.8 % (0-10); NRBC Flagged by Analyzer 0 % (0-5); Neutrophil # 5.37 X10^3/uL (2.7-7.7); Neutrophil % 66.6 % (47-70); Platelet Count 314 K/mm3 (150-450); RBC Distribution Width CV 13.6 % (11.6-14.6); RBC Distribution Width SD 44.6 fl (35.1-43.9); Red Blood Count 4.23 M/mm3 (4.2-5.4); White Blood Count 8.1 K/mm3 (4.4-11.0)
[2024-04-03 15:50] LABS: Vitamin D,25 Hydroxy 32.6 ng/mL
[2024-04-03 15:59] LABS: AST(SGOT) 13 U/L (15-37); Alanine Aminotransfer ALT/SGPT 17 U/L (13-56); Albumin, Serum 3.9 g/dL (3.2-5.0); Alkaline Phosphatase 86 U/L (45-117); Anion Gap 9 (5-15); BUN 9 mg/dL (7-18); BUN/Creat Ratio 14.1 RATIO (10-20); Calcium,Total 9.1 mg/dL (8.5-10.1); Chloride 102 mmol/L (98-107); Cholesterol 153 mg/dL (200); Creatinine, Serum 0.64 mg/dL (0.55-1.02); EST Glomerular Filtration Rate 119 mL/min (>60); Est Glom Filt Rate - Afr Amer 144 mL/min (>60); Glucose 92 mg/dL (74-106); High Density Lipoprotein 47 mg/dL; Potassium 3.9 mmol/L (3.5-5.1); Protein, Total 7.9 g/dL (6.4-8.2); Sodium Level 135 mmol/L (136-145); Triglycerides 179 mg/dL; Very Low Density Lipoprotein 36 mg/dL (5-40)
== END | disposition home or self-care (01) ==
LOC: MTLAB 11:28
PROVIDERS: PCP Family Medicine; Referring Provider Family Medicine; Visit Provider Family Medicine
DX: Z00.00 Encounter for general adult medical examination without abnormal findings (principal); R53.83 Other fatigue; Z13.220 Encounter for screening for lipoid disorders; Z13.1 Encounter for screening for diabetes mellitus
CPT/HCPCS: 36415; 80053; 80061; 82306; 84443; 85025

== ENCOUNTER → 2024-05-29 | Outpatient (CLI) | payer OTHER, SELFPAY ==
[2024-06-06 08:00] LABS: HPV Reflexed? NOT INDICATED
== END | disposition home or self-care (01) ==
PROVIDERS: PCP Family Medicine; Referring Provider Nurse Practitioner Women's Health; Visit Provider Nurse Practitioner Women's Health
DX: Z12.4 Encounter for screening for malignant neoplasm of cervix (principal)
CPT/HCPCS: 88175; G0145

== ENCOUNTER → 2024-12-28 | Outpatient (CLI) | payer SELFPAY ==
--- OUTSIDE RECORDS SUMMARY | 2024-12-28 19:26 | XMS RPT_ITS | CCD ---
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 Submit a new specimen if indicated. Normal [facility] Comment on above: Performed By: #### M [id number] #### [facility] [address] [place], [address] Urine cultureOrdered By: Cathy Brewster on 10-29-2024 Bacteria identified Cx Nom (U) Positive Abnormal [facility] Encounters Encounter Date Encounter Type Care Provider Facility Start: 10-29-2024 End: 10-29-2024 ambulatory Rubi Brewster MD Work Phone: -Laboratory Specimen Start: 10-29-2024 End: 10-29-[address] Rubi Brewster MD -Laboratory Specimen Work Phone: Start: 10-29-2024 End: 10-29-2024 ambulatory Rubi Brewster Facility:[facility] Procedures Date Procedure Procedure Detail Performing Clinician Start: 10-29-2024 Urine culture Rubi sotelo MD Work Phone: Payers Date Payer Category Payer Self-pay Social History Date Type Detail Facility [facility] ever [facility] Work Phone: Start: 1995 Sex Assigned At Female [facility] Evaluation note Note Date & Type Note Facility Evaluation note No assessment information availa ble [facility] Work Phone: Reason for referral (narrative) Note Date & Type Note Facility Reason for referral (narrative) No reason for referral information available [facility] Work Phone: Summary Purpose Family History No Family History Records Found Advance Directives No Advanced Directives Records Found Additional Source Comments Care Teams (unrecognized sec tion and content) Team Status: Active Member Role/Relationship Status Wendi Brewster MD Primary Care Provider Active Team Status: Inactive Member Role/Relationship Status Dates Rubi Brewster MD Primary Care Provider Active St art: October 29, 2024 End: October 29, 2024 Rubi Brewster MD Attending Provider Active Start : October 29, 2024 End: October 29, 2024 Goals (unrecognized section and content) Goals may be documented in a n alternate section INFORMATION SOURCE (unrecogn ized section and content) DATE CREATED AUTHOR 11/04/2024 [facility] FOR RECORDS PERTAINING TO PATIENTS WHO ARE OR HAVE BEEN ENROLLED IN A CHEMICAL DEPENDENCY/SUBSTANCEABUSE PROGRAM, SOME INFORMATION MAY BE OMITTED. This clinical summary was aggregated from multiple sources. Caution should be exercised in using it in the provision of clinical care. This summary normalizes information from multiple sources, and as a consequence, information in this document may materially change the coding, format and clinical context of patient data. In addition, data may be omitted in some cases. CLINICAL DECISIONS SHOULD BE BASED ON THE PRIMARY CLINICAL RECORDS. [employer] [facility]. provides no warranty or guarantee of the accuracy or completeness of information in this document.
== END | disposition home or self-care (01) ==
PROVIDERS: PCP Family Medicine; Referring Provider Advanced Practice Midwife; Visit Provider Advanced Practice Midwife
DX: N89.8 Other specified noninflammatory disorders of vagina (principal)
CPT/HCPCS: 87070; 87205

== ENCOUNTER → 2024-12-31 | Outpatient (CLI) | payer OTHER, SELFPAY | END | disposition home or self-care (01) | PROVIDERS: PCP Family Medicine; Visit Provider Advanced Practice Midwife | DX: N97.9 Female infertility, unspecified (principal) | CPT/HCPCS: 36415 ==

== ENCOUNTER → 2025-01-02 | Outpatient (CLI) | payer OTHER, SELFPAY ==
--- NOTE | 2025-01-02 15:43 | US_ITS ---
PROCEDURE: US/Pelvic w/ Transvaginal
== END | disposition home or self-care (01) ==
LOC: US 15:37
PROVIDERS: PCP Family Medicine; Referring Provider Advanced Practice Midwife; Visit Provider Advanced Practice Midwife
DX: N93.9 Abnormal uterine and vaginal bleeding, unspecified (principal)
CPT/HCPCS: 76830; 76856

== ENCOUNTER → 2025-01-18 | Outpatient (CLI) | payer OTHER, SELFPAY ==
[2025-01-18 17:32] LABS: Vitamin D,25 Hydroxy 30.9 ng/mL (30-100)
[2025-01-20 06:38] LABS: PROGESTERONE 7.0 ng/mL (.)
== END | disposition home or self-care (01) ==
PROVIDERS: Advanced Practice Midwife; PCP Family Medicine; Visit Provider Obstetrics & Gynecology
DX: N97.9 Female infertility, unspecified (principal); Z31.69 Encounter for other general counseling and advice on procreation
CPT/HCPCS: 36415; 82306; 84144

== ENCOUNTER → 2025-01-30 | Outpatient (CLI) | payer OTHER, SELFPAY ==
[2025-02-05 23:07] LABS: Anti-Mullerian Hormone,Serum 0.102 ng/mL (.)
== END | disposition home or self-care (01) ==
LOC: LAB 15:46
PROVIDERS: PCP Family Medicine; Referring Provider Advanced Practice Midwife; Visit Provider Advanced Practice Midwife
DX: N93.9 Abnormal uterine and vaginal bleeding, unspecified (principal); Z31.69 Encounter for other general counseling and advice on procreation
CPT/HCPCS: 36415; 83516